=== PATIENT | female | born 1965 | race Caucasian/White ===

== ENCOUNTER 2018-07-18 18:47 | Emergency (ER) | payer OTHER ==
[~2018-07-18] VITALS: Ht 157.5 cm; Wt 62.1 kg
[2018-07-18 18:56] VITALS: BP 240/99
[2018-07-18] MEDS ORDERED: ONDANSETRON 4 MG ODT PO ONE (20:15)
[2018-07-18] MEDS ORDERED: fentaNYL 0.05 MG/ML VIAL IM ONE (20:15)
[2018-07-18 21:32] VITALS: BP 163/81
== END 2018-07-18 21:32 | disposition home or self-care (01) ==
LOC: MED 18:47
DX: I12.0 Hypertensive chronic kidney disease with stage 5 chronic kidney disease or end stage renal disease (principal); N18.6 End stage renal disease; M25.531 Pain in right wrist; M25.521 Pain in right elbow; Z99.2 Dependence on renal dialysis; Z88.1 Allergy status to other antibiotic agents; Z88.5 Allergy status to narcotic agent
CPT/HCPCS: 96372; 99283; J3010; Q0162

== ENCOUNTER 2020-07-20 19:50 | Emergency (ER) | payer OTHER ==
[~2020-07-20] VITALS: Ht 162.6 cm; Wt 65.8 kg
[2020-07-20 19:55] VITALS: BP 162/90
--- NOTE | 2020-07-20 19:58 | NUR ---
to lobby a/w bed ambulatory
[2020-07-20] MEDS: fentaNYL citrate 0.05 MG/ML VIAL IM ONE ×2 (22:07→22:16)
[2020-07-20] MEDS: ONDANSETRON 4 MG ODT PO ONE ×2 (22:07→22:17)
[2020-07-20 22:10] VITALS: BP 162/90
--- NOTE | 2020-07-20 22:17 | NUR ---
PATIENT ELOPED FROM FACILITY. DISCHARGE INSTRUCTIONS NOT GIVEN TO PATIENT. FLAKO Neil NOTIFIED.
== END 2020-07-20 22:17 | disposition home or self-care (01) ==
LOC: MED 19:50
DX: M19.012 Primary osteoarthritis, left shoulder (principal); M19.011 Primary osteoarthritis, right shoulder; I10 Essential (primary) hypertension; Z86.39 Personal history of other endocrine, nutritional and metabolic disease; Z87.448 Personal history of other diseases of urinary system; Z95.0 Presence of cardiac pacemaker; Z90.49 Acquired absence of other specified parts of digestive tract; Z98.890 Other specified postprocedural states; Z88.0 Allergy status to penicillin; Z88.8 Allergy status to other drugs, medicaments and biological substances; Z88.5 Allergy status to narcotic agent
CPT/HCPCS: 99281; J3010; Q0162

== ENCOUNTER 2020-08-25 20:09 | Emergency (ER) | payer OTHER ==
[~2020-08-25] VITALS: Ht 162.6 cm; Wt 65.8 kg
[2020-08-25 20:15] VITALS: BP 154/84
--- NOTE | 2020-08-25 20:15 | NUR ---
to bed # 04 ambulatory
--- NOTE | 2020-08-25 20:35 | NUR ---
PT COMING IN TODAY FOR SEVERE R SHOULDER PAIN RADIATING INTO ARM AND SHOULDER BLADE. PT STATES SHE HAS NOT BEEN ABLE TO SLEEP X 2-3 DAYS. HOME MEDS NOT HELPING. WEAK FUR MIXER TO RIGHT SIDE DUE TO PAIN LEVEL AND POOR ROM TO RIGHT ARM. PT HAS A HX OF LUPUS AND ARTHIRITIS. PT DENIES ANY SOB, N/V/D, AFEBRILE. BED IN LOWEST POSITION, SIDERAIL UP X 1, AND BED LOCKED ALLERGY - AMOXICILLIN, AMPICILLIN, MORPHINE HX - LUPUS, HTM, KIDNEY DISEASE, THYROID DISEASE, DIAYLSIS - T, TH, S
--- NOTE | 2020-08-25 20:55 | NUR ---
Dr. Lang examining patient.
[2020-08-25] MEDS ORDERED: fentaNYL citrate 0.05 MG/ML VIAL IM ONE (21:05)
--- NOTE | 2020-08-25 21:20 | NUR ---
PER PT, PAIN DECREASED TO 3/10.
[2020-08-25 21:23] VITALS: BP 154/84
== END 2020-08-25 21:23 | disposition home or self-care (01) ==
LOC: MED 20:09
DX: M25.511 Pain in right shoulder (principal); I13.10 Hypertensive heart and chronic kidney disease without heart failure, with stage 1 through stage 4 chronic kidney disease, or unspecified chronic kidney disease; N18.9 Chronic kidney disease, unspecified; Z95.0 Presence of cardiac pacemaker; E07.9 Disorder of thyroid, unspecified; Z88.1 Allergy status to other antibiotic agents; Z88.5 Allergy status to narcotic agent
CPT/HCPCS: 96372; 99283; J3010

== ENCOUNTER 2020-09-21 20:52 | Emergency (ER) | payer OTHER ==
[~2020-09-21] VITALS: Ht 162.6 cm; Wt 64.9 kg
[2020-09-21 21:02] VITALS: BP 157/77
--- NOTE | 2020-09-21 21:16 | NUR ---
PT TRIAGED & W/C ASSISTED BACK INTO LOBBY, VSS.
--- NOTE | 2020-09-21 22:20 | NUR ---
PATIENT PRESENTS TO ED WITH C/O JOINT PAIN . PT HAS HX OF LUPUS AND ARTHRITIS WITH CHRONIC PAIN. DENIES N/V/D; SKIN IS PINK/WARM/DRY; AAOX4. PT DENIES ANY FEVER, CP, SOB, OR COUGH AT THIS TIME; PATIENT STATES PAIN OF 6/10 AT THIS TIME; VSS; PATIENT POSITIONED FOR COMFORT; HOB ELEVATED; BEDRAILS UP X2; BED DOWN. ER MD MADE AWARE OF PT STATUS.
[2020-09-21] MEDS: KETOROLAC 60 MG/2 ML VIAL IM ONE (23:34)
[2020-09-21] MEDS: ONDANSETRON 4 MG/5 ML ORASYR PO ONE (23:35)
[2020-09-22 00:01] VITALS: BP 157/77
--- NOTE | 2020-09-22 00:01 | NUR ---
Patient discharged with v/s stable. Written and verbal after care instructions given and explained. Patient alert, oriented and verbalized understanding of instructions. Ambulatory with steady gait. All questions addressed prior to discharge. ID band removed. Patient advised to follow up with PMD. Patient educated on indication of medication including possible reaction and side effects. Opportunity to ask questions provided and answered.
== END 2020-09-22 00:01 | disposition home or self-care (01) ==
LOC: MED 20:52
DX: M32.9 Systemic lupus erythematosus, unspecified (principal); I13.10 Hypertensive heart and chronic kidney disease without heart failure, with stage 1 through stage 4 chronic kidney disease, or unspecified chronic kidney disease; N18.9 Chronic kidney disease, unspecified; E07.9 Disorder of thyroid, unspecified; Z95.0 Presence of cardiac pacemaker; Z88.1 Allergy status to other antibiotic agents; Z88.5 Allergy status to narcotic agent
CPT/HCPCS: 96372; 99283; J1885; Q0162

== ENCOUNTER 2020-09-22 23:49 | Emergency (ER) | payer OTHER ==
[~2020-09-22] VITALS: Ht 162.6 cm; Wt 29.5 kg
[2020-09-22 23:51] VITALS: BP 111/68
[2020-09-23] MEDS ORDERED: KETOROLAC 60 MG/2 ML VIAL IM ONE
[2020-09-23 02:29] VITALS: BP 101/60
--- NOTE | 2020-09-23 02:31 | NUR ---
PT BIB SELF FOR BODY ACHES & CHILLS ON ARMS, LEGS SINCE YESTERDAY. PT AFEBRILE @ THIS TIME. ALLERGIES: AMOXICILLIN, INSULIN, MORPHINE. PMH: ARTHRITIS, RA, LUPUS, DIALYSIS (THURSDAY, , THU) LT FOREARM AV SHUNT LOCATED, HTN, THYROID, WV X 2. Addendum: 09/23/20 at 0231 by NURA [id number] ENTERING TIME
--- NOTE | 2020-09-23 02:31 | NUR ---
Patient discharged with v/s stable. Written and verbal after care instructions given and explained. Patient verbalized understanding. Ambulatory with steady gait. All questions addressed prior to discharge. Advised to follow up with PMD.
== END 2020-09-23 02:29 | disposition home or self-care (01) ==
LOC: MED 23:49
DX: M25.59 Pain in other specified joint (principal); I13.10 Hypertensive heart and chronic kidney disease without heart failure, with stage 1 through stage 4 chronic kidney disease, or unspecified chronic kidney disease; N18.9 Chronic kidney disease, unspecified; E07.9 Disorder of thyroid, unspecified; Z95.0 Presence of cardiac pacemaker; Z88.1 Allergy status to other antibiotic agents; Z88.5 Allergy status to narcotic agent; Z79.899 Other long term (current) drug therapy
CPT/HCPCS: 96372; 99283; J1885

== ENCOUNTER 2020-09-23 21:25 | Emergency (ER) | payer OTHER ==
[~2020-09-23] VITALS: Ht 154.9 cm; Wt 56.7 kg
[2020-09-23 21:45] VITALS: BP 166/79
[2020-09-23] MEDS ORDERED: KETOROLAC 60 MG/2 ML VIAL IM ONE (22:10)
--- NOTE | 2020-09-23 22:50 | NUR ---
EKG PERFORMED AT BEDSIDE. EKG READS SINUS TACHYCARDIA @ 106
--- NOTE | 2020-09-23 22:53 | NUR ---
PT HAS COME IN 3 DAYS IN A ROW WITH THE SAME COMPLAINTS, SEVERE BODY PAIN, FEVER AND CHILLS, SORE THROAT, NAUSEA, NO APPETITE, PALPATATIONS, AND SOB. PT CURRENTLY AFEBRILE, LUNG SOUNDS CLEAR BILATERALLY. PT HAS DIALYSIS SHUNT ON LEFT FOREARM. PT ON GURNEY, BED IN LOWEST POSITION AND SIDERAIL UP X 1. HX - LUPUS, KIDNEY DISEASE, HTN, THYROID ISSUE, DIALYSIS
--- NOTE | 2020-09-23 22:58 | NUR ---
X-RAY AT BEDSIDE
--- NOTE | 2020-09-23 23:10 | NUR ---
PT CONTINUES TO C/O BODY ACHES AND PAINS, TORADOL DID NOT HELP WITH ANY PAIN MANAGEMENT
--- NOTE | 2020-09-23 23:10 | NUR ---
PT HAD LISTED AN ALLERGY TO MORPHINE, PT DENIES HAVING THIS ALLERGY AND SAYS SHE'S OK TO TAKE MORPHINE.
[2020-09-23 23:15] LABS: BASOPHILS % (AUTO) 0.2 % (0.0-2.0); EOSINOPHILS # (AUTO) 0.1 K/uL (0-0.4); EOSINOPHILS % (AUTO) 1.2 % (0.0-4.0); HEMATOCRIT 28.9 % (36-48); HEMOGLOBIN 9.8 g/dL (12.0-16.0); LYMPHOCYTES # (AUTO) 0.8 K/uL (2.5-16.5); LYMPHOCYTES % (AUTO) 8.3 % (20.5-51.1); MEAN CORPUSCULAR HEMOGLOBIN 29 pg (27-31); MEAN CORPUSCULAR HGB CONC 34 g/dL (33-37); MEAN CORPUSCULAR VOLUME 84.7 fL (80-94); MONOCYTES # (AUTO) 0.9 K/uL (0.8-1.0); MONOCYTES % (AUTO) 8.7 % (1.7-9.3); NEUTROPHILS # (AUTO) 8.2 K/uL (1.8-7.7); NEUTROPHILS % (AUTO) 81.6 % (42.2-75.2); PLATELET COUNT (AUTO) 166 K/uL (140-450); RED BLOOD CELL COUNT(AUTO) 3.41 MIL/uL (4.20-5.40); RED CELL DISTRIBUTION WIDTH 17.1 % (11.6-13.7); WHITE BLOOD COUNT (AUTO) 10.1 K/uL (4.8-10.8)
[2020-09-23] MEDS ORDERED: MORPHINE SULFATE 4 MG/ML SYR IVP ONE (23:15)
[2020-09-23] MEDS ORDERED: ONDANSETRON 4 MG/2 ML VIAL IVP ONE (23:15)
--- NOTE | 2020-09-23 23:15 | NUR ---
PT HAS NO URINE OUTPUT, PT HAS DIALYSIS 3 X WEEKLY. MD CAMERON AWARE
[2020-09-23 23:26] LABS: ALBUMIN 3.4 g/dL (3.4-5.0); ANION GAP 14.9 (8-16); CARBON DIOXIDE 26.2 mmol/L (21-32); POTASSIUM 4.1 mmol/L (3.5-5.1); TOTAL BILIRUBIN 0.4 mg/dL (0.0-1.0)
[2020-09-23 23:31] LABS: CREATININE 8.7 mg/dL (0.6-1.3)
[2020-09-23] MEDS ORDERED: ACETAMINOPHEN EXTRA STRENGTH 500 MG TAB PO ONE (23:45)
[2020-09-24] MEDS ORDERED: BAMLANIVIMAB IV ONE (00:30)
[2020-09-24] MEDS ORDERED: NACL 0.9% IV ONE (00:30)
[2020-09-24] MEDS ORDERED: BAMLANIVIMAB 700 MG/20 ML VIAL IV ONE (00:37)
--- NOTE | 2020-09-24 00:37 | NUR ---
PT RESTING MORE COMFORTABLY, TEMP HAS GONE DOWN AND PAIN IS BETTER CONTROLLED AT THIS TIME. RATES PAIN 5/10 NOW.
[2020-09-24 02:16] VITALS: BP 115/62
--- NOTE | 2020-09-24 02:17 | NUR ---
Patient discharged with v/s stable. Written and verbal after care instructions given and explained. Patient alert, oriented and verbalized understanding of instructions. Ambulatory with steady gait. All questions addressed prior to discharge. ID band removed. Patient advised to follow up with PMD. Rx of DEXAMETHASONE, ZINC SULFATE, AND HYDROXYCHLOROQUINE SULFATE given. Patient educated on indication of medication including possible reaction and side effects. Opportunity to ask questions provided and answered.
== END 2020-09-24 02:17 | disposition home or self-care (01) ==
LOC: MED 21:25
DX: U07.1 COVID-19 (principal); I13.10 Hypertensive heart and chronic kidney disease without heart failure, with stage 1 through stage 4 chronic kidney disease, or unspecified chronic kidney disease; N18.9 Chronic kidney disease, unspecified; E07.9 Disorder of thyroid, unspecified; Z95.0 Presence of cardiac pacemaker; Z88.1 Allergy status to other antibiotic agents; Z79.899 Other long term (current) drug therapy
CPT/HCPCS: 36415; 71045; 80053; 83880; 85025; 87426; 93005; 96372; 96374; 96375; 99285; J1885; J2270; J2405; J7030; M0239; Q0239

== ENCOUNTER 2021-01-04 11:24 | Emergency (ER) | payer OTHER ==
[~2021-01-04] VITALS: Ht 162.6 cm; Wt 64.9 kg
[2021-01-04 11:28] VITALS: BP 137/78
--- NOTE | 2021-01-04 11:37 | NUR ---
PT TAKEN TO BED 6 AMBULATED WITH STEADY GAIT.
--- NOTE | 2021-01-04 11:53 | NUR ---
55 yo f c/o abscess, left thigh x 2 weeks. pt reports 10/10 pain described as soreness. as per patient, this started as a pimple-like pustule which grew in size and drains bloody discharge. pt also complains of pins and needles on left thigh. reports headache and subjective fever. pt was advised by primary care physician to seek consult in er. pmh: dialysis, ckd, lupus, rheumatoid arthritis, hypertension, thyroid dse meds: see list allergies: amoxicillin, morphine, ampicillin, insulin
--- NOTE | 2021-01-04 11:58 | NUR ---
DR SWEENEY AT BEDSIDE EXAMINING PT
[2021-01-04] MEDS ORDERED: fentaNYL citrate 0.05 MG/ML VIAL IM ONE (12:00)
[2021-01-04] MEDS ORDERED: LIDOCAINE/EPI 1% 1:100000 20 ML VIAL INJ ONE (12:00)
[2021-01-04] MEDS ORDERED: SEN30 PO (12:03)
[2021-01-04] MEDS ORDERED: OMEP20TC12 PO ×2 (12:03→12:19)
[2021-01-04] MEDS ORDERED: ASPI-1884 PO (12:03)
[2021-01-04] MEDS ORDERED: REN800 PO (12:03)
[2021-01-04] MEDS ORDERED: LON2.5 PO (12:03)
[2021-01-04] MEDS ORDERED: TTS3 TD (12:03)
--- NOTE | 2021-01-04 12:15 | NUR ---
DR SWEENEY AT BEDSIDE PERFORMING I&D PROCEDURE
[2021-01-04] MEDS ORDERED: VITA1TAB44 PO (12:19)
[2021-01-04] MEDS ORDERED: BISA-28 PO (12:19)
[2021-01-04] MEDS ORDERED: PARO10TA8 PO (12:19)
--- NOTE | 2021-01-04 12:20 | NUR ---
I&D Procedure done by Dr Berman. Minimal amt of bleeding noted. Pt tolerated procedure. Wound care discussed w/ patient.
[2021-01-04] MEDS ORDERED: SULF-59 PO (12:29)
[2021-01-04] MEDS ORDERED: ACET-8386 PO (12:29)
[2021-01-04 12:50] VITALS: BP 128/80
--- NOTE | 2021-01-04 12:50 | NUR ---
Patient discharged with v/s stable. Written and verbal after care instructions given and explained. Patient alert, oriented and verbalized understanding of instructions. Ambulatory with steady gait. All questions addressed prior to discharge. ID band removed. Patient advised to follow up with PMD. Rx of Bactrim DS and Everetts sent to [facility] per patient request. Patient educated on indication of medication including possible reaction and side effects. Opportunity to ask questions provided and answered.
== END 2021-01-04 12:50 | disposition home or self-care (01) ==
LOC: MED 11:24
DX: L02.416 Cutaneous abscess of left lower limb (principal); I13.10 Hypertensive heart and chronic kidney disease without heart failure, with stage 1 through stage 4 chronic kidney disease, or unspecified chronic kidney disease; N18.9 Chronic kidney disease, unspecified; Z59.0 Homelessness
CPT/HCPCS: 10060; 96372; 99284; J2001; J3010

== ENCOUNTER 2021-01-08 09:11 | Emergency (ER) | payer OTHER ==
[~2021-01-08] VITALS: Ht 162.6 cm; Wt 64.0 kg
[~2021-01-08 09:11] MED LIST: ACET-8386 PO; ASPI-1884 PO; BISA-28 PO; LON2.5 PO; OMEP20TC12 PO; PARO10TA8 PO; REN800 PO; SEN30 PO; SULF-59 PO; TTS3 TD; VITA1TAB44 PO
[2021-01-08 09:25] VITALS: BP 121/73
[2021-01-08] MEDS ORDERED: KETOROLAC 15 MG/ML VIAL IM ONE (09:50)
[2021-01-08 10:04] VITALS: BP 121/73
== END 2021-01-08 10:02 | disposition home or self-care (01) ==
LOC: MED 09:11
DX: L02.416 Cutaneous abscess of left lower limb (principal); M25.50 Pain in unspecified joint; I10 Essential (primary) hypertension; E07.9 Disorder of thyroid, unspecified; Z90.49 Acquired absence of other specified parts of digestive tract; Z98.890 Other specified postprocedural states; Z95.0 Presence of cardiac pacemaker; Z79.899 Other long term (current) drug therapy; Z79.82 Long term (current) use of aspirin; Z88.1 Allergy status to other antibiotic agents; Z88.5 Allergy status to narcotic agent; Z88.8 Allergy status to other drugs, medicaments and biological substances
CPT/HCPCS: 96372; 99283; J1885

== ENCOUNTER 2021-01-09 18:22 | Inpatient (IN) | payer OTHER, SELFPAY ==
[~2021-01-09] VITALS: Ht 162.6 cm; Wt 64.4 kg
[~2021-01-09 18:22] MED LIST changes: +OMEP-278 PO; -OMEP20TC12 PO
--- NOTE | 2021-01-09 18:22 | NUR ---
BIBA TO BED 8
[2021-01-09 18:30] VITALS: BP 137/77
--- NOTE | 2021-01-09 18:40 | NUR ---
55 Y/O FEMALE BIBA C/O GENERALIZED WEAKNESS AND CHEST PAIN WORSE PAIN WITH INSPIRATION XTODAY. PT RATES CP 8/10 THAT SHE DESCRIBES BURNING AND NONRADIATING. PT STATES THAT SHE IS SOB BECAUSE OF HER LUPUS, SPO2 98% ON RA. PT C/O +N/V LAST NIGHT. PT A/O X4 WITH EVEN AND UNLABORED RESPIRATIONS. 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 MEDHX: DIALYSIS, HTN, LUPUS SHUNT LOWER LEFT ARM, DIAYSIS T//SAT ALLERGIES:AMOXCILLIN, AMPICILLIN, HYDRALAZINE AND MORPHINE.
--- NOTE | 2021-01-09 19:06 | NUR ---
DR SWEENEY AT BEDSIDE EVALUATING PT
--- NOTE | 2021-01-09 19:13 | NUR ---
GAVE REPORT TO RODRIGO HERNÁNDEZ, TRANSFER OF CARE AT THIS TIME
--- NOTE | 2021-01-09 19:14 | NUR ---
RECEIVED REPORT FROM BETTY WREN FOR CONTINUITY OF CARE
[2021-01-09] MEDS ORDERED: fentaNYL citrate 0.05 MG/ML VIAL IVP ONE ×2 (19:30→21:30)
--- NOTE | 2021-01-09 19:40 | NUR ---
EKG PERFORMED AT BEDSIDE. EKG READS SINUS RHYTHM @ 87
[2021-01-09 20:21] LABS: BASOPHILS # (AUTO) 0.1 K/uL (0.00-0.22); BASOPHILS % (AUTO) 1.1 % (0.0-2.0); EOSINOPHILS % (AUTO) 0.2 % (0.0-4.0); HEMATOCRIT 34.1 % (36-48); HEMOGLOBIN 11.6 g/dL (12.0-16.0); LYMPHOCYTES # (AUTO) 1.1 K/uL (2.5-16.5); LYMPHOCYTES % (AUTO) 11.4 % (20.5-51.1); MEAN CORPUSCULAR HEMOGLOBIN 29 pg (27-31); MEAN CORPUSCULAR HGB CONC 34 g/dL (33-37); MEAN CORPUSCULAR VOLUME 85.8 fL (80-94); MONOCYTES # (AUTO) 0.7 K/uL (0.8-1.0); MONOCYTES % (AUTO) 7.3 % (1.7-9.3); NEUTROPHILS # (AUTO) 8.1 K/uL (1.8-7.7); PLATELET COUNT (AUTO) 194 K/uL (140-450); RED BLOOD CELL COUNT(AUTO) 3.98 MIL/uL (4.20-5.40); RED CELL DISTRIBUTION WIDTH 16.3 % (11.6-13.7); WHITE BLOOD COUNT (AUTO) 10.1 K/uL (4.8-10.8)
[2021-01-09 20:37] LABS: PROTHROMBIN TIME 10.4 secs (10.8-13.4)
[2021-01-09 20:50] LABS: ALBUMIN 3.4 g/dL (3.4-5.0); ANION GAP 15.1 (8-16); CARBON DIOXIDE 26.3 mmol/L (21-32); POTASSIUM 3.4 mmol/L (3.5-5.1); TOTAL BILIRUBIN 0.4 mg/dL (0.0-1.0)
--- NOTE | 2021-01-09 21:05 | NUR ---
FROM RECEIVED A CALL FROM JONAS DEL CASTILLO REGARDING CRITICAL LAB VALUE: LACTIC ACID: 2.5 CREATININE: 9.02 REPORTED CRITICAL LAB VALUE TO DR. SWEENEY, ORDERS RECEIVED: PT IS TO BE ADMITTED
[2021-01-09] MEDS ORDERED: NACL 0.9% 1,000 ML IV ONE (21:10)
[2021-01-09] MEDS ORDERED: LEVOFLOXACIN 500 MG/D5W PREMIX 100 ML IV ONE (21:10)
--- NOTE | 2021-01-09 21:15 | NUR ---
COLLECTED JIM SWAB AND SENT TO LAB, HANDED TO CPT AKASH
--- NOTE | 2021-01-09 21:35 | NUR ---
TRIED CONTACTING DAUGHTER MANOLO, BUT PHONE NUMBER IS BUSY; WILL CALL BACK
[2021-01-09] MEDS ORDERED: LEVOFLOXACIN 500 MG/D5W PREMIX 100 ML IV SCH (21:45)
[2021-01-09] MEDS ORDERED: ONDANSETRON 4 MG/2 ML VIAL IVP PRN (21:45)
--- NOTE | 2021-01-09 22:14 | NUR ---
RECEIVED REPORT FROM ER NURSE FOR TRANSFER TO [facility] UNIT. WILL WAIT FOR PT TO ARRIVE.
--- NOTE | 2021-01-09 22:25 | NUR ---
Patient will be admitted to care of DR. TEMPLE. Admited to TELEMMETRY. Will go to room 115. Belongings list completed. Report to TIM HERNÁNDEZ.
--- NOTE | 2021-01-09 22:40 | NUR ---
PT ARRIVED TO UNIT VIA GURNEY. PT IS AWAKE AND ALERT, A&OX4. PT STATES PAIN, GENERALIZED AT A SCALE OF 10/10. ON RA WITH BREATHING UNLABORED. BOWEL SOUNDS PRESENT IN ALL QUADRANTS. SKIN IS WARM AND DRY. INCISION ON THE LEFT BUTTOCK, S/P I&D 5 DAYS AGO AT THIS HOSPITAL. PICTURE WAS TAKEN AND PLACED IN THE CHART. GOWN WAS CHANGED TO YELLOW FALL RISK GOWN PT HAS GENERALIZED WEAKNESS. AV SHUNT IN THE LEFT LOWER ARM. SIGNS PLACED IN ROOM FOR AV SHUNT. MRSA NARES SWABBED. STANDARD PRECAUTIONS IN PLACE.
--- NOTE | 2021-01-09 23:00 | NUR ---
PATIENT IS AAOX4 AZERI SPEAKING ONLY. QUESTION PATIENT'S SIDE EFFECT TO MORPHINE PER PT SHE IS NOT ALLERGIC FIRST TIME SHE GOT IT SHE GOT ANXIOUS. SINCE THEN PATIENT HAS GOTTEN MORPHINE WITH NO ADVERSE EFFECT. EDUCATED PT MD ORDERED MORPHINE IVP FOR PAIN CONTROL PT VERBALIZED UNDERSTANDING AND WOULD LIKE TO RECEIVE FOR PAIN CONTROL.
--- NOTE | 2021-01-09 23:01 | NUR ---
PT STATES SHE HAS PAIN AT A SCALE OF 10/10 GENERALIZED, ALL OVER BODY. MORPHINE WAS ORDERED 2 MG IVP FOR PAIN. MORPHINE IS LISTED UNDER ALLERGIES. PT IS MAURITANIAN SPEAKING PRIMARILY. CHARGE NURSE, OSBALDO HERNÁNDEZ, AT BEDSIDE ASKED IF PT WAS ALLERGIC TO MORPHINE. PT STATES SHE WAS ANXIOUS THE FIRST TIME SHE RECEIVED MORPHINE, BUT HAS RECEIVED MORPHINE SINCE AND WAS FINE. WHEN ASKED IF SHE HAS HAD AN ALLERGIC REACTION TO MORPHINE PT STATES NO. PT DENIES ALLERGY TO MORPHINE. MORPHINE WAS REMOVED FROM ALLERGY LIST.
[2021-01-09 23:09] VITALS: BP 141/66
[2021-01-09] MEDS: MORPHINE SULFATE 2 MG/ML SYR IVP PRN (23:09)
--- NOTE | 2021-01-09 23:09 | NUR ---
PT STATES PAIN ALL OVER BODY AT A SCALE OF 10/10. PT WAS GIVEN MORPHINE FOR PAIN IVP. IV WAS PATENT AND FLUSHING WELL. PT DENIED ALLERGY TO MORPHINE. BP WAS 141/66 PRIOR TO ADMINISTRATION OF MEDICATION. MEDICATION EDUCATION WAS PROVIDED AND PT VERBALIZED UNDERSTANDING. WILL CONTINUE TO MONITOR PT.
--- NOTE | 2021-01-09 23:18 | NUR ---
TEXTED DR. TEMPLE TO ASK IF HE WANTED THE ONE TIME DOSE OF LEVAQUIN 250 MG TO BE ADMINISTERED NOW CONSIDERING 500 MG LEVAQUIN WAS ALREADY GIVEN IN THE ER. DOCTOR RESPONDED TO CHANGE THE ORDER TO 500 MG Q24H, THEREFORE NOT GIVE THE ONE TIME 250 MG DOSE. WILL FOLLOW THROUGH WITH ORDERS.
--- NOTE | 2021-01-09 23:40 | NUR ---
SPOKE TO DAUGHTER, MANOLO, ON THE PHONE. UPDATED HER ON THE CONDITION AND PLAN OF CARE OF PT. ALL QUESTIONS ANSWERED. OBTAINED MEDICAL HISTORY FROM DAUGHTER.
--- NOTE | 2021-01-10 00:24 | NUR ---
TEXTED DR. TEMPLE TO REPORT PT'S PAIN AT A SCALE OF 10/10 GENERALIZED, DESPITE BEING GIVEN MORPHINE OVER AN HOUR AGO. DOCTOR ORDERED NORCO 5MG Q4 HR PRN. WILL ADMINISTER ONCE VERIFIED.
[2021-01-10] MEDS: HYDROcodone/APAP 5/325 MG 1 TAB TAB PO PRN ×2 (00:46→09:33)
[2021-01-10] MEDS: MORPHINE SULFATE 2 MG/ML SYR IVP PRN ×4 (02:58→15:24)
--- NOTE | 2021-01-10 02:58 | NUR ---
PT STATES PAIN AT A SCALE OF 10/10, GENERALIZED. PT WAS GIVEN MORPHINE FOR PAIN. BP WAS 119/68 PRIOR TO ADMINISTRATION OF MEDICATION. WILL MONITOR PAIN.
[2021-01-10 04:00] VITALS: BP 147/65
--- NOTE | 2021-01-10 05:19 | NUR ---
PT STATES SHE HAS PAIN AT A SCALE OF 6/10. TOLD PT THAT SHE COULD HAVE NORCO FOR PAIN. PT STATED SHE ONLY WANTED IV MEDICATION FOR PAIN SO SHE SAID SHE WILL WAIT FOR MORPHINE TO BE DUE IN TWO HOURS. WILL REEVALUATED PAIN WHEN MEDICINE IS DUE.
[2021-01-10 06:14] LABS: BASOPHILS % (AUTO) 0.3 % (0.0-2.0); EOSINOPHILS # (AUTO) 0.1 K/uL (0-0.4); EOSINOPHILS % (AUTO) 0.6 % (0.0-4.0); HEMATOCRIT 34.9 % (36-48); HEMOGLOBIN 11.8 g/dL (12.0-16.0); LYMPHOCYTES # (AUTO) 1.2 K/uL (2.5-16.5); LYMPHOCYTES % (AUTO) 8.5 % (20.5-51.1); MEAN CORPUSCULAR HEMOGLOBIN 29 pg (27-31); MEAN CORPUSCULAR HGB CONC 34 g/dL (33-37); MEAN CORPUSCULAR VOLUME 87.1 fL (80-94); MONOCYTES # (AUTO) 1.3 K/uL (0.8-1.0); MONOCYTES % (AUTO) 8.8 % (1.7-9.3); NEUTROPHILS # (AUTO) 11.8 K/uL (1.8-7.7); NEUTROPHILS % (AUTO) 81.8 % (42.2-75.2); PLATELET COUNT (AUTO) 168 K/uL (140-450); RED BLOOD CELL COUNT(AUTO) 4.01 MIL/uL (4.20-5.40); RED CELL DISTRIBUTION WIDTH 16.4 % (11.6-13.7); WHITE BLOOD COUNT (AUTO) 14.5 K/uL (4.8-10.8)
--- NOTE | 2021-01-10 06:30 | NUR ---
CALLED SOUMYA JUAN JOSE TO INFORM HER ABOUT NEW ADMIT THAT HAS AN ORDER FOR DIALYSIS. WENT STRAIGHT TO [employer]. WILL TRY CALLING AGAIN IN A FEW MINUTES.
[2021-01-10 06:41] LABS: MAGNESIUM 1.6 mg/dL (1.8-2.4); PHOSPHORUS 3.7 mg/dL (2.5-4.9)
[2021-01-10 06:46] LABS: ANION GAP 19.8 (8-16); CARBON DIOXIDE 22.8 mmol/L (21-32); POTASSIUM 3.6 mmol/L (3.5-5.1)
--- NOTE | 2021-01-10 06:58 | NUR ---
PT WAS GIVEN MORPHINE FOR PAIN AT A SCALE OF 10/10. BP WAS 156/94 PRIOR TO ADMINISTRATION. WILL MONITOR PAIN.
--- NOTE | 2021-01-10 07:10 | NUR ---
ENDORSED PT TO DAY SHIFT NURSE FOR CONTINUITY OF CARE. PT IS STABLE AT THIS TIME. PLAN OF CARE DISCUSSED.
[2021-01-10 07:15] LABS: CREATININE 9.4 mg/dL (0.6-1.3)
--- NOTE | 2021-01-10 07:30 | NUR ---
TEXTED DR. TEMPLE TO INFORM HIM OF CRITICAL LAB OF CREATININE 9.4 AND BUN 42. ALSO INFORMED HIM THAT DIALYSIS IS SCHEDULED TODAY ORDERED BY DR. PUENTES. WILL WAIT FOR RESPONSE.
[2021-01-10 08:00] VITALS: BP 155/86
--- NOTE | 2021-01-10 08:16 | NUR ---
PATIENT HAS BEEN SCREENED AND CATEGORIZED HIGH NUTRITION RISK. PATIENT WILL BE SEEN WITHIN 1-2 DAYS OF ADMISSION. 01/10/21-01/11/21 FNS CONSULT FOR WOUNDS/PRESSURE INJURIES RECEIVED AND FNS REFERRAL RECEIVED FOR UNHEALED WOUND. KAYLIE TEIXEIRA RD
[2021-01-10] MEDS: ACETAMINOPHEN 325 MG TAB PO PRN ×2 (10:03→20:18)
--- NOTE | 2021-01-10 10:06 | NUR ---
PATIENT COMPLAINED OF MILD GENERALIZED PAIN /. ADMINISTERED TYLENOL PO PRN PER MD ORDERED.
--- NOTE | 2021-01-10 11:04 | NUR ---
PATIENT STILL COMPLAINING OF GENERALIZED PAIN /. ADMINISTERED MORPHINE IVP PER MD ORDERED.
[2021-01-10 12:00] VITALS: BP 156/86
--- NOTE | 2021-01-10 12:30 | NUR ---
DISCHARGE PLANNING 55 YO female with hx ESRD on HD T//S, HTN, & Lupus biba to ER c/o generalized weakness, pain 10 out of 10, & Fever. Was seen in ED 5days ago and I&D done of abscess. Pt with Fever 101.0, CXR shows CHF, lactic acid elevated 2.5, na 132, k 3.2, BUN/Creat 38.9.0. Pt admitted Tele dx Sepsis. BCX done results pending. today cont on IV Levaquin, PO [place] prn, IV Morphine prn. HD scheduled for today.
--- NOTE | 2021-01-10 13:44 | NUR ---
01/10/21 RD INITIAL ASSESSMENT COMPLETED PLEASE REFER TO NUTRITION ASSESSMENT UNDER CARE ACTIVITY FOR ESTIMATED NUTRITIONAL NEEDS. 1. RECOMMENDED RENAL DIET TOLERATED 2. RECOMMENDED CHERELLE BID 3. RECOMMEND NEPRO BID IF PO INTAKE <75% 4. PROVIDE PATIENT HELP WITH MEALS AND ENCOURAGE PO INTAKE 5. RD TO FOLLOW-UP 2-3 DAYS, HIGH RISK KAYLIE TEIXEIRA, RD
--- NOTE | 2021-01-10 14:00 | NUR ---
DR. GUNTER AT PATIENT'S BEDSIDE DISCUSSING HEMODIALYSIS PROCEDURE. CONSENT FORM SIGNED BY PATIENT AND MD. Addendum: 01/10/21 at 1444 by Keenan Eisenberg RN RN WITNESSED CONSENT ENDORSEMENT.
--- NOTE | 2021-01-10 14:42 | NUR ---
DIALYSIS NURSE AT BEDSIDE PREPARING PATIENT FOR HEMODIALYSIS TREATMENT.
--- NOTE | 2021-01-10 15:30 | NUR ---
PATIENT BEGAN HEMODIALYSIS TREATMENT. PT IS STABLE. DIALYSIS NURSE AT BEDSIDE.
[2021-01-10 16:00] VITALS: BP 162/94
[2021-01-10] MEDS ORDERED: HYDROcodone/APAP 5/325 MG 1 TAB TAB PO PRN (17:10)
[2021-01-10] MEDS ORDERED: MAG SULF 2000 MG/WATER PREMIX 50 ML IV SCH (17:30)
--- NOTE | 2021-01-10 18:30 | NUR ---
PATIENT COMPLETED HD TREATMENT. Addendum: 01/10/21 at 1941 by Keenan Eisenberg RN RN 1 L FLUIDS REMOVED Addendum: 01/11/21 at 0819 by Keenan Eisenberg RN RN 3 L FLUIDS REMOVED NOT 1 L
--- NOTE | 2021-01-10 19:15 | NUR ---
ENDORSED TO BIODIESEL ENGINEERING MANAGER NURSE FOR CONTINUITY OF CARE. PT IS STABLE.
--- NOTE | 2021-01-10 19:20 | NUR ---
RECEIVED ENDORSEMENT FROM DAY SHIFT NURSE FOR CONTINUITY OF CARE. PT IS AWAKE AND ALERT. A&OX4. UP AT CHAIR, STATING SHE HAS PAIN ALL OVER BODY AT A SCALE OF 10/10. ON RA WITH BREATHING UNLABORED. ST ON TELE MONITORING. SKIN IS WARM AND DRY. SURGICAL INCISION HEALING ON THE LEFT BUTTOCK, BHARATH. AV SHUNT ON THE LEFT LOWER ARM. SWELLING ON THE UPPER EXTREMITIES BILATERALLY. RECEIVED DIALYSIS TODAY WITH 3 L OUT REPORTED BY DAY SHIFT NURSE. IV IS IN THE RIGHT FOREARM 22 GAUGE SALINE LOCKED. PT IS ON FALL/ STANDARD PRECAUTIONS.
--- NOTE | 2021-01-10 19:30 | NUR ---
SPOKE TO DAUGHTER ON THE PHONE, MANOLO. CONCERN IS THAT THE PT'S PAIN IS UNRELIEVED BY MORPHINE AND IS REQUESTING DIFFERENT PAIN MEDICATION FOR PT. ALSO STATED THAT PT RECEIVES PREDNISONE WHEN SHE IS HAVING INFLAMMATION FROM LUPUS. ASKED DAUGHTER THE DOSE AND SHE STATED SHE DIDN'T KNOW THE DOSAGE. WILL RELAY THIS INFORMATION TO PRIMARY DOCTOR.
--- NOTE | 2021-01-10 19:45 | NUR ---
TEXTED DR. JIMENEZ AND INFORMED HIM THAT DAUGHTER SAID PT TAKES PREDNISONE TO REDUCE INFLAMMATION RELATED TO LUPUS. ALSO TOLD HIM THAT DAUGHTER DID NOT KNOW THE DOSAGE. TOLD HIM THAT PT IS IN SEVERE PAIN 10/10 GENERALIZED UNRELIEVED BY MORPHINE. DR. JIMENEZ ORDERED DILAUDID 1 MG Q3HR FOR SEVERE PAIN. WILL ADMINISTER ONCE VERIFIED.
[2021-01-10 20:00] VITALS: BP 157/92
[2021-01-10] MEDS: HYDROmorphone 1 MG/ML AMP IVP PRN (20:16)
--- NOTE | 2021-01-10 20:16 | NUR ---
PT WAS STATING PAIN AT A SCALE OF 10/10 GENERALIZED. PT SAYS THE PAIN ACHES ALL OVER. PT WAS GIVEN DILAUDID 1 MG IVP FOR PAIN. BP WAS 157/92 AND HR 136 PRIOR TO MEDICATION ADMINISTRATION. MEDICATION EDUCATION WAS PROVIDED AND PT VERBALIZED UNDERSTANDING. TEMP IS 101.4 AND COOLING MEASURES WERE PROVIDED. BLANKETS REMOVED AND ICE PACKS APPLIED UNDERNEATH AXILLARY AND BEHIND NECK. TYLENOL WAS GIVEN FOR FEVER. WILL MONITOR FEVER. CLONIDINE WAS ALSO GIVEN SCHEDULED.
[2021-01-10] MEDS: CLONIDINE HYDROCHLORIDE 0.1 MG TAB PO SCH (20:17)
[2021-01-10] MEDS ORDERED: LEVOFLOXACIN 500 MG/D5W PREMIX 100 ML IV SCH (21:00)
--- NOTE | 2021-01-10 21:38 | NUR ---
SOUMYA, DIALYSIS NURSE CALLED AND ASKED IF PT WAS TO RECEIVE DIALYSIS AGAIN TOMORROW. INFORMED HER THAT NO ORDER WAS PLACED FOR DIALYSIS TOMORROW BY CLASSIFICATION CLERK. SHE ASKED IF PT WAS A NEW DIALYSIS PT OR CHRONIC PROBLEM. INFORMED HER THAT THE PT HAS BEEN ON DIALYSIS FOR 17 YEARS STATED BY DAUGHTER, MANOLO.
--- NOTE | 2021-01-10 22:02 | NUR ---
RECHECKED PT'S TEMP ORALLY AND THE READING IS 98.6 F. COOLING MEASURES REMOVED.
--- NOTE | 2021-01-10 22:38 | NUR ---
CALLED DR. GIVENS WELLNESS HEALTH COACH FOR DR. TEMPLE. INFORMED HIM THAT PT'S HR HAS SUSTAINED IN THE 130-140'S. INFORMED HIM THAT LAST BP READING WAS 117/62 AND HR 136. ALSO INFORMED HIM THAT PT HAS A ESRD AND HAD HD TODAY. DOCTOR ORDERED 10 MG IVP METOPROLOL ONE TIME DOSE. WILL ADMINISTER ONCE VERIFIED.
[2021-01-10] MEDS ORDERED: METOPROLOL 5 MG/5 ML VIAL IVP SCH ×2 (22:40→23:40)
--- NOTE | 2021-01-10 23:08 | NUR ---
TEXTED DR. GIVENS AND INFORMED HIM THE PHARMACIST CALLED ASKING IF HE WOULD LIKE TO CHANGE THE METOPROLOL DOSE FROM 10 MG TO 5MG PER PROTOCOL. WILL WAIT FOR RESPONSE.
--- NOTE | 2021-01-10 23:08 | NUR ---
SPOKE TO PASHA PHARMACIST FROM [facility], AND HE ASKED IF THE DOCTOR WOULD LIKE TO CHANGE THE METOPROLOL DOSE FROM 10 MG TO 5 MG PER PROTOCOL. WILL ASK DR. GIVENS AND CONFIRM WITH PHARMACIST.
--- NOTE | 2021-01-10 23:30 | NUR ---
DR. GIVENS RESPONDED "OK" TO CHANGING THE METOPROLOL DOSE FROM 10 MG TO 5 MG IVP. CONFIRMED INFORMATION WITH PHARMACIST AND WILL ADMINISTER MEDICATION ONCE VERIFIED.
--- NOTE | 2021-01-10 23:52 | NUR ---
METOPROLOL 5 MG IVP GIVEN FOR ELEVATED HR. HR IS 124 AND BP IS 119/70 PRIOR TO ADMINISTRATION. WILL MONITOR HR AND BP.
[2021-01-11] VITALS: BP 111/65
--- NOTE | 2021-01-11 01:03 | NUR ---
PT IS SLEEPING. NO DISTRESS NOTED. BREATHING IS UNLABORED. ON TELE MONITORING, HR IS 105. HR HAS DECREASED SINCE GIVING METOPROLOL. PT IS STABLE. WILL CONTINUE TO MONITOR.
--- NOTE | 2021-01-11 01:30 | NUR ---
PT IS UP TO THE RESTROOM WITH ASSISTANCE. PT HAS DIFFICULTY WALKING R/T PAIN IN FEET. PT BRUSHED TEETH AND GAVE SELF SPONGE BATH AT SINK. PT NOW BACK TO BED. PAIN IS NOTED AT A SCALE OF 10/10. WILL MEDICATE FOR PAIN.
[2021-01-11] MEDS: HYDROmorphone 1 MG/ML AMP IVP PRN ×5 (01:46→20:47)
--- NOTE | 2021-01-11 01:46 | NUR ---
PT STATES PAIN ALL OVER HER BODY AT A SCALE OF 10/10. PAIN IS ACHING IN CHARACTERISTIC. PT WAS GIVEN DILAUDID FOR PAIN ORDERED. BP WAS 116/74 PRIOR TO ADMINISTRATION OF MEDICATION. WILL CONTINUE TO MONITOR.
[2021-01-11 04:00] VITALS: BP 109/71
--- NOTE | 2021-01-11 04:00 | NUR ---
PT IS ASLEEP. CHEST RISE AND FALL IS SYMMETRICAL. BREATHING IS UNLABORED ON RA. NO DISTRESS NOTED. WILL CONTINUE TO MONITOR PT. BED ALARM ON.
[2021-01-11] MEDS: CLONIDINE HYDROCHLORIDE 0.1 MG TAB PO SCH ×3 (05:00→21:01)
[2021-01-11 05:30] LABS: BASOPHILS % (AUTO) 0.1 % (0.0-2.0); HEMATOCRIT 39.7 % (36-48); HEMOGLOBIN 13.3 g/dL (12.0-16.0); LYMPHOCYTES # (AUTO) 0.6 K/uL (2.5-16.5); LYMPHOCYTES % (AUTO) 3.2 % (20.5-51.1); MEAN CORPUSCULAR HEMOGLOBIN 29 pg (27-31); MEAN CORPUSCULAR HGB CONC 34 g/dL (33-37); MEAN CORPUSCULAR VOLUME 87.6 fL (80-94); MONOCYTES # (AUTO) 1.2 K/uL (0.8-1.0); MONOCYTES % (AUTO) 6.1 % (1.7-9.3); NEUTROPHILS # (AUTO) 17.1 K/uL (1.8-7.7); NEUTROPHILS % (AUTO) 90.6 % (42.2-75.2); PLATELET COUNT (AUTO) 202 K/uL (140-450); RED BLOOD CELL COUNT(AUTO) 4.53 MIL/uL (4.20-5.40); RED CELL DISTRIBUTION WIDTH 16.8 % (11.6-13.7); WHITE BLOOD COUNT (AUTO) 18.9 K/uL (4.8-10.8)
[2021-01-11 05:38] LABS: ANION GAP 14.9 (8-16); CARBON DIOXIDE 26.5 mmol/L (21-32); POTASSIUM 4.4 mmol/L (3.5-5.1)
[2021-01-11 06:08] LABS: CREATININE 7.5 mg/dL (0.6-1.3)
--- NOTE | 2021-01-11 06:25 | NUR ---
INFORMED DR. QUICK THAT I HELD CLONIDINE FOR DECREASED BP. BP READING WAS 105/64 AND HR 85. WILL CONTINUE TO MONITOR BP.
--- NOTE | 2021-01-11 06:38 | NUR ---
PT STATED PAIN AT A SCALE OF 10/10 ALL OVER BODY. PT SAYS THE PAIN ACHES. PT WAS GIVEN DILAUDID FOR PAIN. BP WAS 113/66 PRIOR TO ADMINISTRATION OF MEDICATION.
--- NOTE | 2021-01-11 07:15 | NUR ---
ENDORSED PT TO DAY SHIFT NURSE FOR CONTINUITY OF CARE. PT IS STABLE AT THIS TIME. PLAN OF CARE DISCUSSED.
--- NOTE | 2021-01-11 07:17 | NUR ---
RECEIVED ENDORSEMENT FROM HIGH SCHOOL SOCIAL SCIENCE TEACHER NURSE FOR CONTINUITY OF CARE. PT IS AWAKE AND ALERT. A&OX4. RESPIRATIONS EVEN AND UNLABORED. ON RA WITH NO RESPIRATORY DISTRESS NOTED. ST ON TELE MONITORING. SKIN IS WARM AND DRY. SURGICAL INCISION HEALING ON THE LEFT BUTTOCK, INTERNET CAFE MANAGER. AV SHUNT ON THE LEFT LOWER ARM. NOTED SWELLING ON THE UPPER EXTREMITIES BILATERALLY. S/P DIALYSIS 6/10 WITH 3 L OUTPUT. IV ON RFA 22 GAUGE SALINE LOCKED. PLAN OF CARE DISCUSSED. SAFETY PRECAUTIONS IN PLACE. CALL LIGHT WITHIN REACH. WILL CONTINUE TO MONITOR.
[2021-01-11 08:00] VITALS: BP 99/52
[2021-01-11] MEDS ORDERED: NON-FORMULARY ITEM (Omeprazole (Omeprazole) 1 TAB) PO SCH (09:00)
[2021-01-11] MEDS ORDERED: SEVELAMER HCL PO SCH (09:00)
[2021-01-11] MEDS: CINACALCET 30 MG TAB PO SCH (09:45)
[2021-01-11] MEDS: SEVELAMER CARBONATE 800 MG TAB PO SCH ×3 (09:45→16:42)
[2021-01-11] MEDS: ASPIRIN 81 MG TAB.CHEW PO SCH (09:45)
[2021-01-11] MEDS: PARoxetine 10 MG TAB PO SCH (09:46)
[2021-01-11] MEDS: bisacodyL 5 MG TABEC PO SCH (09:46)
[2021-01-11] MEDS: VIT-B COMP/VIT-C/FOLIC ACID 1 TAB PO SCH (09:49)
[2021-01-11] MEDS: PANTOPRAZOLE 40 MG TABEC PO SCH (09:49)
--- NOTE | 2021-01-11 09:52 | NUR ---
PATIENT COMPLAINED OF 10/10 GENERALIZED PAIN THROUGHOUT HER BODY. ADMINISTERED DILAUDID IVP PRN PER MD ORDERED. WOUND CARE NURSE AT BEDSIDE.
[2021-01-11] MEDS: minoxidiL 2.5 MG TAB PO SCH (09:54)
--- NOTE | 2021-01-11 10:05 | NUR ---
ALL SCHEDULED MEDS GIVEN. PT IS STABLE. NO DISTRESS NOTED. WILL CONTINUE TO MONITOR
--- NOTE | 2021-01-11 10:20 | NUR ---
SKIN ASSESSMENT DONE WITH THIS 55 Y/O PT. NO OPENED ACTIVE WOUND, RIGHT LOWER BUTTOCK HX S/P I&D SITE,CLOSED NADIA-WOUND SKIN INTACT, NO INDURATION. NORMAL SKIN TEMP. AND SKIN COLOR. Addendum: 01/11/21 at 1050 by Kenny Roldan RN (Grace) EDIT: LEFT LOWER BUTTOCK HX S/P I&D SITE,0.5CM SLIT CLOSED HEALED WOUND
[2021-01-11 12:00] VITALS: BP 95/53
--- NOTE | 2021-01-11 12:30 | NUR ---
CHECKED ON PATIENT. PATIENT IS ASLEEP. NOTED CHEST RISE AND FALL. NO DISTRESS NOTED. WILL CONTINUE TO MONITOR.
--- NOTE | 2021-01-11 14:32 | NUR ---
CHECKED ON PATIENT. PATIENT IS ASLEEP. NOTED CHEST RISE AND FALL. NO RESPIRATORY DISTRESS NOTED. WILL CONTINUE TO MONITOR.
[2021-01-11 16:00] VITALS: BP 109/64
--- NOTE | 2021-01-11 16:51 | NUR ---
PATIENT COMPLAINED OF NAUSEA AND GENERALIZED PAIN 10/10. ADMINISTERED DILAUDID IVP PRN PER MD ORDERED.
--- NOTE | 2021-01-11 17:15 | NUR ---
CHECKED ON PATIENT. PT IS ASLEEP. NOTED CHEST RISE AND FALL. NO DISTRESS NOTED. WILL CONTINUE TO MONITOR.
--- NOTE | 2021-01-11 19:20 | NUR ---
ENDORSED TO ACID PUMP OPERATOR NURSE FOR CONTINUITY OF CARE. PT IS STABLE.
--- NOTE | 2021-01-11 19:21 | NUR ---
RECEIVED BEDSIDE REPORT FROM YESIKA HIRSCH. PT AOX4 ON ROOM AIR. NO S/S RESPIRATORY DISTRESS. NO C/O PAIN AT THIS TIME. IV SITE RFA, S.L. HAS L LOWER ARM AV SHUNT, S/P I&D L BUTTOCK, HEALING, NO DRAINAGE, WARE SERVER. SAFETY MEASURES IN PLACE. CALL LIGHT WITHIN REACH. WILL CONTINUE TO MONITOR
[2021-01-11 20:00] VITALS: BP 127/71
--- NOTE | 2021-01-11 20:47 | NUR ---
PRN DILAUDID GIVEN FOR C/O 10/10 GENERALIZED PAIN. EDUCATION PROVIDED. PT VERBALIZED UNDERSTANDING. NO DISTRESS NOTED. CALL LIGHT WITHIN REACH. WILL CONTINUE TO MONITOR
[2021-01-11] MEDS ORDERED: LEVOFLOXACIN 250 MG/D5 PREMIX 50 ML IV SCH ×2 (21:00)
--- NOTE | 2021-01-11 21:10 | NUR ---
ADMINISTERED SCHEDULED MEDICATIONS PER MD ORDERS, PRN BENADRYL GIVEN FOR C/O GENERALIZED ITCHINESS. EDUCATION PROVIDED. PT VERBALIZED UNDERSTANDING. NO DISTRESS NOTED. CALL LIGHT WITHIN REACH. WILL CONTINUE TO MONITOR
[2021-01-12] VITALS: BP 116/71
--- NOTE | 2021-01-12 00:32 | NUR ---
PT C/O SLEEPLESSNESS. PAGED DR. MARRERO, NO NEW ORDERS RECEIVED, STATED HE WILL DO ROUNDS IN THE MORNING. INFORMED PATIENT OF DOCTOR'S RESPONSE.
[2021-01-12] MEDS: HYDROmorphone 1 MG/ML AMP IVP PRN ×5 (01:13→16:11)
--- NOTE | 2021-01-12 01:13 | NUR ---
PRN DILAUDID GIVEN FOR C/O 10/10 GENERALIZED PAIN. EDUCATION PROVIDED. PT VERBALIZED UNDERSTANDING. NO DISTRESS NOTED. CALL LIGHT WITHIN REACH. WILL CONTINUE TO MONITOR
[2021-01-12 04:00] VITALS: BP 130/77
[2021-01-12] MEDS: CLONIDINE HYDROCHLORIDE 0.1 MG TAB PO SCH ×2 (05:16→12:32)
--- NOTE | 2021-01-12 05:25 | NUR ---
PRN DILAUDID GIVEN FOR C/O 10/10 GENERALIZED PAIN. EDUCATION PROVIDED. PT VERBALIZED UNDERSTANDING. NO DISTRESS NOTED. CALL LIGHT WITHIN REACH. WILL CONTINUE TO MONITOR
[2021-01-12 06:54] LABS: ANION GAP 18.7 (8-16); CARBON DIOXIDE 25.4 mmol/L (21-32); POTASSIUM 5.1 mmol/L (3.5-5.1)
[2021-01-12 06:57] LABS: BASOPHILS % (AUTO) 0.1 % (0.0-2.0); EOSINOPHILS % (AUTO) 0.2 % (0.0-4.0); HEMATOCRIT 34.4 % (36-48); HEMOGLOBIN 11.4 g/dL (12.0-16.0); LYMPHOCYTES # (AUTO) 0.4 K/uL (2.5-16.5); LYMPHOCYTES % (AUTO) 3.8 % (20.5-51.1); MEAN CORPUSCULAR HEMOGLOBIN 29 pg (27-31); MEAN CORPUSCULAR HGB CONC 33 g/dL (33-37); MEAN CORPUSCULAR VOLUME 87.9 fL (80-94); MONOCYTES # (AUTO) 0.5 K/uL (0.8-1.0); MONOCYTES % (AUTO) 4.3 % (1.7-9.3); NEUTROPHILS # (AUTO) 10.3 K/uL (1.8-7.7); NEUTROPHILS % (AUTO) 91.6 % (42.2-75.2); PLATELET COUNT (AUTO) 205 K/uL (140-450); RED BLOOD CELL COUNT(AUTO) 3.91 MIL/uL (4.20-5.40); RED CELL DISTRIBUTION WIDTH 16.8 % (11.6-13.7); WHITE BLOOD COUNT (AUTO) 11.2 K/uL (4.8-10.8)
[2021-01-12 07:06] LABS: CREATININE 9.4 mg/dL (0.6-1.3)
--- NOTE | 2021-01-12 07:21 | NUR ---
ENDORSED PATIENT TO DAY RN FOR CONTINUITY OF CARE. PATIENT IS IN STABLE CONDITION
--- NOTE | 2021-01-12 07:22 | NUR ---
RECEIVED BEDSIDE REPORT FROM CERTIFIED OPHTHALMIC TECHNOLOGIST RN MIRZA. PT AOX4 ON ROOM AIR. CURRENTLY ASLEEP. NO S/S RESPIRATORY DISTRESS. NO C/O PAIN AT THIS TIME. IV SITE RFA, S.L. HAS L LOWER ARM AV SHUNT, S/P I&D L BUTTOCK, HEALING, NO DRAINAGE, BHARATH. SAFETY MEASURES IN PLACE. CALL LIGHT WITHIN REACH. WILL CONTINUE TO MONITOR
[2021-01-12 08:30] VITALS: BP 133/81
[2021-01-12] MEDS: SEVELAMER CARBONATE 800 MG TAB PO SCH ×3 (08:49→17:42)
[2021-01-12] MEDS: ASPIRIN 81 MG TAB.CHEW PO SCH (08:49)
[2021-01-12] MEDS: VIT-B COMP/VIT-C/FOLIC ACID 1 TAB PO SCH (08:50)
[2021-01-12] MEDS: PARoxetine 10 MG TAB PO SCH (08:50)
[2021-01-12] MEDS: CINACALCET 30 MG TAB PO SCH (08:50)
[2021-01-12] MEDS: PANTOPRAZOLE 40 MG TABEC PO SCH (08:50)
[2021-01-12] MEDS: bisacodyL 5 MG TABEC PO SCH (08:50)
[2021-01-12] MEDS: minoxidiL 2.5 MG TAB PO SCH (09:00)
[2021-01-12] MEDS: diphenhydrAMINE 50 MG/ML VIAL IVP PRN ×2 (09:25→15:51)
[2021-01-12 12:00] VITALS: BP 120/68
[2021-01-12 16:00] VITALS: BP 139/72
--- NOTE | 2021-01-12 19:25 | NUR ---
REPORT GIVEN TO BUSINESS OFFICE COORDINATOR NURSE. PATIENT CURRENTLY GETTING DIALYSIS. ESTIMATED FINISHED TIME 2009. PATIENT CAN BE DISCHARGED AFTER DIALYSIS, PATIENT AWARE.
--- NOTE | 2021-01-12 19:26 | NUR ---
RECEIVED BEDSIDE REPORT FROM DAY RN. PT IS AAOX4 [place] SPEAKING ONLY. IV ON R FA 22G SL. RESPIRATIONS ARE EQUAL AND UNLABORED ON RA. L LOWER ARM AV SHUNT CURRENT ON HD. HAS D/C ORDER AFTER HD PT VERBALIZED UNDERSTANDING. PT REQUESTING DILAUDID BEFORE LEAVING EXPLAIN HOSPITAL PROTOCOL. 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 CALL LIGHT IS WITHIN REACH. WILL CONTINUE TO MONITOR.
[2021-01-12 20:00] VITALS: BP 147/82
--- NOTE | 2021-01-12 20:20 | NUR ---
HD COMPLETE WITH 2L OUT VSS 147/82 83HR 17 98% RA 97.5. D/C INSTRUCTIONS GIVEN TO PT. PER MD CONTINUE MEDICATION OK TO STOP BACTRIM PO. PT VERBALIZED UNDERSTANDING. D/C PAPER SIGN AND PLACED IN CHART. IV CATH REMOVED CATH IS INTACT. PER PT FRIEND WILL PICK HER UP.
--- NOTE | 2021-01-12 20:55 | NUR ---
ARM BANDS REMOVED. ALL BELONGINGS WITH PT. PT WAS WHEELED OUT BY EQUAL OPPORTUNITY SPECIALIST IN STABLE CONDITION. DENIES ANY S/S OF DISTRESS.
== END 2021-01-12 20:55 | disposition home or self-care (01) | DRG 194 ==
LOC: MED 18:22 → MTU 21:45
PROVIDERS: ADMIT Hospitalist; ATTEND Hospitalist
DX: I13.2 Hypertensive heart and chronic kidney disease with heart failure and with stage 5 chronic kidney disease, or end stage renal disease (principal); N17.0 Acute kidney failure with tubular necrosis; R65.11 Systemic inflammatory response syndrome (SIRS) of non-infectious origin with acute organ dysfunction; M32.9 Systemic lupus erythematosus, unspecified; N18.6 End stage renal disease; E87.1 Hypo-osmolality and hyponatremia; I50.9 Heart failure, unspecified; E87.6 Hypokalemia; D64.9 Anemia, unspecified; D72.829 Elevated white blood cell count, unspecified; Z82.49 Family history of ischemic heart disease and other diseases of the circulatory system; Z83.3 Family history of diabetes mellitus; G89.29 Other chronic pain; Z99.2 Dependence on renal dialysis; Z88.1 Allergy status to other antibiotic agents; Z88.8 Allergy status to other drugs, medicaments and biological substances; Z20.822 Contact with and (suspected) exposure to COVID-19
CPT/HCPCS: 36415; 71045; 80048; 80053; 83605; 83735; 84100; 84484; 85025; 85610; 87040; 87081; 90935; 93005; 96365; 96375; 96376; 99285; J1170; J1200; J1956; J2270; J2405; J3010; J3475; J3490; Q0163